=== PATIENT | male | born 1945 | race Caucasian/White ===

== ENCOUNTER 2018-08-27 09:35 | Outpatient (CLI) | payer MEDICARE ==
[2018-08-27 10:02] LABS: BILIRUBIN,DIRECT 0.3 mg/dL (0.1-0.5); BILIRUBIN,INDIRECT 2.2 mg/dL; BILIRUBIN,TOTAL 2.5 mg/dL (0.2-1.0)
== END 2018-08-27 09:36 | disposition home or self-care (01) ==
LOC: LAB 09:35
PROVIDERS: ATTEND Physician Assistant
DX: R17 Unspecified jaundice (principal); D69.6 Thrombocytopenia, unspecified
CPT/HCPCS: 36415; 82247; 82248; 85049

== ENCOUNTER 2021-07-07 00:15 | Outpatient (CLI) | payer MEDICARE | END 2021-07-07 00:16 | disposition short-term general hospital (02) | LOC: EMS 00:15 | DX: R10.9 Unspecified abdominal pain (principal) | CPT/HCPCS: A0425; A0427 ==

== ENCOUNTER 2021-12-18 09:04 | Outpatient (CLI) | payer MEDICARE | END 2021-12-18 09:05 | disposition home or self-care (01) | LOC: DI 09:04 | PROVIDERS: ATTEND Internal Medicine Cardiovascular Disease | DX: Z95.2 Presence of prosthetic heart valve (principal); Z98.890 Other specified postprocedural states; Z95.1 Presence of aortocoronary bypass graft; I51.7 Cardiomegaly; I37.1 Nonrheumatic pulmonary valve insufficiency; I77.819 Aortic ectasia, unspecified site; I87.8 Other specified disorders of veins | CPT/HCPCS: 93306 ==

== ENCOUNTER 2022-02-27 08:00 | Outpatient (CLI) | payer MEDICARE ==
[2022-03-31 15:58] LABS: BILIRUBIN,URINE NEGATIVE (NEGATIVE); GLUCOSE, URINE (UA) NEGATIVE (NEGATIVE); KETONES,URINE (UA) NEGATIVE (NEGATIVE); LEUKOCYTE ESTERASE, URINE NEGATIVE (NEGATIVE); NITRITE,URINE NEGATIVE (NEGATIVE); OCCULT BLOOD,URINE MODERATE (NEGATIVE); PROTEIN,URINE 30 mg/dL (NEGATIVE); UROBILINOGEN,URINE 0.2 (NORMAL) E.U./dL (NORMAL)
[2022-03-31 16:09] LABS: BACTERIA,URINE Many /HPF (None Seen); CLARITY,URINE HAZY (CLEAR); RBC,URINE TNTC /HPF (0-5); SQUAMOUS EPITHELIAL CELL,UR FEW Squamous (<= Few); WBC CLUMPS,URINE PRESENT
== END 2022-02-27 23:59 | disposition home or self-care (01) ==
LOC: LAB.R 08:00
PROVIDERS: ATTEND Internal Medicine
DX: N40.0 Benign prostatic hyperplasia without lower urinary tract symptoms (principal); R68.83 Chills (without fever); R39.14 Feeling of incomplete bladder emptying; R61 Generalized hyperhidrosis; R35.0 Frequency of micturition
CPT/HCPCS: 81001; 87086

== ENCOUNTER 2022-09-02 19:42 | Outpatient (CLI) | payer MEDICARE | END 2022-09-02 23:59 | disposition short-term general hospital (02) | LOC: EMS 19:42 | DX: R46.4 Slowness and poor responsiveness (principal); R09.89 Other specified symptoms and signs involving the circulatory and respiratory systems; R61 Generalized hyperhidrosis; R94.31 Abnormal electrocardiogram [ECG] [EKG] | CPT/HCPCS: A0425; A0427 ==